=== PATIENT | male | born 1980 | race Caucasian/White ===

== ENCOUNTER 2021-01-25 14:54 | Outpatient (CLI) | payer BC | END 2021-01-25 14:55 | disposition home or self-care (01) | LOC: SCSMRI 14:54 | PROVIDERS: ATTEND Orthopaedic Surgery | DX: M71.21 Synovial cyst of popliteal space [Baker], right knee (principal) ==

== ENCOUNTER 2021-02-27 12:52 | Outpatient (CLI) | payer BC ==
[2021-02-27 13:39] LABS: #Basophils 0.1 10x3/uL (0.0-0.2); #Eosinphils 0.1 10x3/uL (0.0-0.5); #Monocytes 0.5 10x3/uL (0.0-1.1); #Neutrophils 3.9 10x3/uL (1.5-8.4); %Basophils 1.1 % (0.0-2.0); %Eosinophils 1.2 % (0.0-6.0); %Lymphocytes 37.6 % (18.0-47.0); %Monocytes 6.2 % (0.0-10.0); %Neutrophils 53.6 % (40.0-75.0); Hemoglobin 15.6 g/dL (13.5-17.5); Mean Corpuscular HGB CONC 33.2 g/dL (32.0-36.0); Mean Corpuscular Hemoglobin 30.5 pg (27.0-33.0); Mean Corpuscular Volume 91.8 fl (81.2-95.1); Mean Platelet Volume 10.2 fl (7.4-10.4); Platelet Count 275 10x3/uL (150-450); RBC Distribution Width 11.9 % (11.5-14.5); Red Blood Cell (RBC) Count 5.12 10x6/uL (4.32-5.72); White Blood Cell (WBC) Count 7.3 10x3/uL (3.5-10.5)
[2021-02-28 09:06] LABS: SARS-CoV-2 PCR by NAA Not Detected (NotDetected)
== END 2021-02-27 12:53 | disposition home or self-care (01) ==
LOC: LABBT 12:52
PROVIDERS: ATTEND Orthopaedic Surgery
DX: Z01.812 Encounter for preprocedural laboratory examination (principal); S83.241D Other tear of medial meniscus, current injury, right knee, subsequent encounter; Z20.822 Contact with and (suspected) exposure to COVID-19
CPT/HCPCS: 85025; U0003; U0005

== ENCOUNTER 2021-03-06 13:10 | Outpatient (CLI) | payer BC ==
[2021-03-07 11:50] LABS: SARS-CoV-2 PCR by NAA Not Detected (NotDetected)
== END 2021-03-06 13:11 | disposition home or self-care (01) ==
LOC: LABBT 13:10
PROVIDERS: ATTEND Orthopaedic Surgery
DX: Z01.812 Encounter for preprocedural laboratory examination (principal); S83.241D Other tear of medial meniscus, current injury, right knee, subsequent encounter; Z20.822 Contact with and (suspected) exposure to COVID-19
CPT/HCPCS: U0003; U0005

== ENCOUNTER 2021-03-08 08:02 | Day surgery (SDC) | payer BC ==
[2021-02-22 12:42] VITALS: BMI 25.9
[2021-03-08] MEDS ORDERED: PROPOFOL 20 ML ONE (09:32)
[2021-03-08] MEDS ORDERED: ceFAZolin 2 GM/Dextrose 50 ML IVPB ONE (10:01)
[2021-03-08] MEDS ORDERED: Fentanyl 100 MCG/2 ML VIAL ONE (10:05)
[2021-03-08] MEDS ORDERED: Rocuronium Bromide 10 MG/ML (10ML VIAL) ONE (10:16)
[2021-03-08] MEDS ORDERED: Dexamethasone 20 MG/5 ML VIAL ONE (10:16)
[2021-03-08] MEDS ORDERED: Ondansetron PF 4 MG/2 ML Vial ONE (10:16)
[2021-03-08] MEDS ORDERED: Glycopyrrolate 0.2 MG/ML 5 ML SYRINGE ONE (10:16)
[2021-03-08] MEDS ORDERED: Lidocaine 1% PF 5 ML VIAL ONE (10:16)
[2021-03-08] MEDS ORDERED: Ketorolac Tromethamine 30 MG/ML VIAL ONE (10:16)
[2021-03-08] MEDS ORDERED: Lidocaine 2% w/Epinephrine 1:200K 20 ML VIAL ONE (10:16)
[2021-03-08] MEDS ORDERED: Bupivacaine PF 0.5% 30 ML VIAL ONE (10:16)
[2021-03-08] MEDS ORDERED: PROPOFOL 200 MG/20 ML VIAL ONE (10:16)
[2021-03-08] MEDS ORDERED: methylPREDNISolone Acetate 40 mg/ml Vial ONE (10:44)
[2021-03-08] MEDS ORDERED: Lidocaine 1% (PF) 30 ML VIAL ONE (10:55)
== END 2021-03-08 14:18 | disposition home or self-care (01) ==
LOC: SDC 08:02
PROVIDERS: ATTEND Orthopaedic Surgery
PROC: 0SBC4ZZ Excision of Right Knee Joint, Percutaneous Endoscopic Approach (ICD-10-PCS; principal; 2021-03-08)
DX: S83.241A Other tear of medial meniscus, current injury, right knee, initial encounter (principal); M23.8X1 Other internal derangements of right knee; M65.88 Other synovitis and tenosynovitis, other site; M22.41 Chondromalacia patellae, right knee; Z79.899 Other long term (current) drug therapy
CPT/HCPCS: J0690; J1100; J1885; J2001; J2405; J2704; J2920; J3010; S0020

== ENCOUNTER 2021-11-20 12:32 | Outpatient (CLI) | payer BC | END 2021-11-20 12:33 | disposition home or self-care (01) | LOC: TBSIIMAG 12:32 | PROVIDERS: ATTEND Orthopaedic Surgery | DX: S46.211A Strain of muscle, fascia and tendon of other parts of biceps, right arm, initial encounter (principal) ==

== ENCOUNTER 2021-11-20 17:04 | Outpatient (CLI) | payer BC ==
[2021-11-20 17:40] LABS: #Basophils 0.1 10x3/uL (0.0-0.2); #Eosinphils 0.2 10x3/uL (0.0-0.5); #Monocytes 0.5 10x3/uL (0.0-1.1); #Neutrophils 5.3 10x3/uL (1.5-8.4); %Basophils 0.7 % (0.0-2.0); %Eosinophils 1.7 % (0.0-6.0); %Lymphocytes 32.8 % (18.0-47.0); %Monocytes 5.6 % (0.0-10.0); Hemoglobin 16.2 g/dL (13.5-17.5); Mean Corpuscular HGB CONC 35.2 g/dL (32.0-36.0); Mean Corpuscular Hemoglobin 31.8 pg (27.0-33.0); Mean Corpuscular Volume 90.2 fl (81.2-95.1); Mean Platelet Volume 10.1 fl (7.4-10.4); Platelet Count 291 10x3/uL (150-450); RBC Distribution Width 11.9 % (11.5-14.5); White Blood Cell (WBC) Count 9.1 10x3/uL (3.5-10.5)
== END 2021-11-20 17:05 | disposition home or self-care (01) ==
LOC: LABBT 17:04
PROVIDERS: ATTEND Orthopaedic Surgery
DX: Z01.812 Encounter for preprocedural laboratory examination (principal); S46.211A Strain of muscle, fascia and tendon of other parts of biceps, right arm, initial encounter
CPT/HCPCS: 85025

== ENCOUNTER 2021-11-23 07:08 | Day surgery (SDC) | payer BC ==
[2021-11-22 12:42] VITALS: BMI 25.0
[2021-11-23] MEDS ORDERED: Midazolam HCl 2 mg/2 ml Vial ONE ×2 (08:30→11:34)
[2021-11-23] MEDS ORDERED: Fentanyl 100 MCG/2 ML VIAL ONE (08:30)
[2021-11-23] MEDS ORDERED: Ropivacaine 0.5% HCl/PF (150 MG/30 ML VIAL) ONE (08:33)
[2021-11-23] MEDS ORDERED: Ropivacaine 0.2% 550 ML 550 ML NERVE BLCK SCH (09:30)
[2021-11-23] MEDS ORDERED: traMADol HCl 50 MG TAB PO PRN ×2 (09:30)
[2021-11-23] MEDS ORDERED: Ketorolac Tromethamine 30 MG/ML VIAL IVP PRN (09:30)
[2021-11-23] MEDS ORDERED: Ondansetron PF 4 MG/2 ML Vial IVP PRN (09:30)
[2021-11-23] MEDS ORDERED: Promethazine HCl 25 MG/ML VIAL IM PRN (09:30)
[2021-11-23] MEDS ORDERED: HYDROcodone/Acetaminophen 10/325 mg Tablet PO PRN ×2 (09:30)
[2021-11-23] MEDS ORDERED: Zolpidem Tartrate 5 MG TAB PO PRN (09:30)
[2021-11-23] MEDS ORDERED: Lidocaine 1% (PF) 30 ML VIAL ONE (10:51)
[2021-11-23] MEDS ORDERED: fentaNYL Citrate/PF 100 MCG/2 ML SYRINGE ONE (10:53)
[2021-11-23] MEDS ORDERED: CEFAZOLIN 2 GM VIAL ONE (10:59)
[2021-11-23] MEDS ORDERED: Sodium Chloride 0.9% 100 ML ONE (10:59)
[2021-11-23] MEDS ORDERED: Dexamethasone 20 MG/5 ML VIAL ONE (11:17)
[2021-11-23] MEDS ORDERED: PROPOFOL 200 MG/20 ML VIAL ONE (11:17)
[2021-11-23] MEDS ORDERED: NEOSTIGMINE 3 MG/3 ML SYR 3 MG/3 ML SYRINGE ONE (11:17)
[2021-11-23] MEDS ORDERED: Ondansetron PF 4 MG/2 ML Vial ONE (11:17)
[2021-11-23] MEDS ORDERED: Glycopyrrolate 0.2 MG/ML 5 ML SYRINGE ONE (11:17)
[2021-11-23] MEDS ORDERED: Ketorolac Tromethamine 30 MG/ML VIAL ONE (11:17)
[2021-11-23] MEDS ORDERED: Rocuronium Bromide 10 MG/ML (10ML VIAL) ONE (11:17)
== END 2021-11-23 14:08 | disposition home or self-care (01) ==
LOC: SDC 07:08
PROVIDERS: ATTEND Orthopaedic Surgery
PROC: 0LM30ZZ Reattachment of Right Upper Arm Tendon, Open Approach (ICD-10-PCS; principal; 2021-11-23)
DX: S46.211A Strain of muscle, fascia and tendon of other parts of biceps, right arm, initial encounter (principal); Z79.899 Other long term (current) drug therapy; Z98.890 Other specified postprocedural states; X58.XXXA Exposure to other specified factors, initial encounter
CPT/HCPCS: 76000; A4306; C1713; J0690; J1100; J1885; J2001; J2250; J2405; J2704; J2795; J3010; J3490